=== PATIENT | male | born 1990 | race Hispanic/Latino ===

== ENCOUNTER 2018-12-11 14:17 | Inpatient (IN) | payer SELFPAY ==
[~2018-12-11 14:17] MED LIST: Heparin 1,000 UNITS/ML VIAL ONE; ISOVUE-370 76%-LOCM 1 ML ONE
[2018-12-11 15:08] LABS: #Lymphocytes 1.4 thou/uL (1.20-3.40); #Monocytes 0.9 thou/uL (0.11-0.59); #Neutrophils 11.1 thou/uL (1.40-6.50); %Basophils 0.3 % (0.0-1.0); %Eosinophils 0.2 % (0.0-10.0); %Lymphocytes 10.1 % (21.0-51.0); %Neutrophils 82.4 % (42.0-75.0); Hemoglobin 13.2 g/dL (14.0-18.0); Mean Corpuscular HGB CONC 32.4 g/dL (32.0-36.0); Mean Corpuscular Volume 86.3 fL (78.0-98.0); Mean Platelet Volume 6.7 fL (7.4-10.4); Platelet Count 277 thou/uL (130-400); RBC Distribution Width 12.2 % (11.5-14.5); White Blood Cell (WBC) Count 13.5 thou/uL (4.8-10.8)
--- NOTE | 2018-12-11 15:13 | RAD ---
Portable chest: HISTORY: Fever COMPARISON: none FINDINGS: Lung varela are clear. Heart and mediastinum appear unremarkable. Vascularity is normal. Visualized osseous structures unremarkable. IMPRESSION: No acute finding
[2018-12-11 15:28] LABS: ALT (SGPT) 18 U/L (8-55); AST (SGOT) 21 U/L (5-34); Albumin 3.1 g/dL (3.5-5.0); Alkaline Phosphatase 125 U/L (40-150); Anion Gap 12 mmol/L (10-20); BUN (Urea Nitrogen) 19 mg/dL (8.9-20.6); Bilirubin, Total 0.4 mg/dL (0.2-1.2); Calc. Creatinine Clearance 0 mL/min (70-130); Calcium 8.6 mg/dL (7.8-10.44); Carbon Dioxide 26 mmol/L (22-29); Chloride 104 mmol/L (98-107); Estimated GFR-MDRD Greater than 90; Globulin 3.3 g/dL (2.4-3.5); Glucose 109 mg/dL (70-105); Potassium 3.6 mmol/L (3.5-5.1); Protein, Total 6.4 g/dL (6.0-8.3); Sodium 138 mmol/L (136-145)
[2018-12-11] MEDS ORDERED: Acetaminophen 500 MG TAB ONE (15:39)
[2018-12-11] MEDS ORDERED: cefTRIAXone\\ROCEPHIN 2 GM VIAL ONE (15:39)
[2018-12-11 15:48] LABS: Color Of CSF Supernatant COLORLESS (Colorless); Tube # 2; Unspun CSF Color COLORLESS (Colorless)
[2018-12-11 16:02] LABS: CSF Source CSF; Clarity Clear (Clear); RBC Count - Manual 1420 /cumm (None Seen); RBC Count - Manual 28 /cumm (None Seen); Tube # 1; Tube # 4; WBC/NonHematics Count - Manual 0 /cumm (0-5); WBC/NonHematics Count - Manual 3 /cumm (0-5)
[2018-12-11 16:04] LABS: CSF, Glucose 61 mg/dl (40-70); CSF, Protein 25 mg/dL (15-40)
[2018-12-11] MEDS ORDERED: Vancomycin HCl 1.5 GM in Sodium Chloride 0.9% 250 ML 300 ML IVPB SCH (16:30)
[2018-12-11] MEDS ORDERED: Ibuprofen 200 MG TAB PO PRN (16:42)
[2018-12-11] MEDS ORDERED: VANCOMYCIN/RENALLY ADJUST ABX IVPB PRN (16:42)
[2018-12-11] MEDS ORDERED: Ondansetron ODT 4 MG TAB PO PRN (16:44)
[2018-12-11] MEDS ORDERED: Acetaminophen 325 MG TAB PO PRN (16:44)
[2018-12-11] MEDS ORDERED: Senokot S 8.6-50 MG TAB PO PRN (16:44)
[2018-12-11] MEDS ORDERED: Ondansetron PF 4 MG/2 ML Vial IVP PRN (16:44)
[2018-12-11] MEDS ORDERED: HYDROcodone/Acetaminophen 5/325 mg Tablet PO PRN (16:44)
[2018-12-11] MEDS ORDERED: Calcium Carbonate 500 MG ChewTAB PO PRN (16:44)
[2018-12-11] MEDS ORDERED: Vancomycin HCl 1 GM in Premix Bag 1 BAG IVPB SCH (16:45)
[2018-12-11 17:04] LABS: Bilirubin Negative (Negative); Blood, Urine Trace (Negative); Clarity CLEAR (Clear); Glucose, Urine (Dipstick) Negative (Negative); Leukocyte Negative (Negative); Nitrite Negative (Negative); Protein, Urine (Dipstick) Negative (Neg-Trace); Specific Gravity, Urine 1.016 (1.002-1.036); Urobilinogen 0.2 mg/dL (0.2-1.0)
[2018-12-11 17:07] LABS: Bacteria/HPF None Seen HPF (None Seen); Hyaline Casts/LPF 4-6 HYALINE CAST LPF (0-3 Hyaline); Pathc Cast-AUWi Flag 1.35 (0-2.49); RBC/HPF None Seen HPF (0-3); Squamous Epithelial 0-3 HPF (0-3); WBC/HPF 0-3 HPF (0-3)
--- NOTE | 2018-12-11 18:26 | CT ---
CT NECK WITH CONTRAST: Technique: Multiple axial tomograms were obtained through the neck with IV enhancement. Indications: Sepsis. Sore throat. FINDINGS: Parotid glands are somewhat dense but are symmetric. Submandibular glands appear symmetric. Thyroid u nremarkable. Nasopharynx unremarkable. Oropharynx and Waldeyer's ring appear symmetric. The palatine tonsils are mildly prominent but are sy mmetric. No evidence of peritonsillar abscess identified. There are two small calcified tonsilliths i n the right palatine tonsil. The hypopharynx and larynx unremarkable. Parapharyngeal space and retropharyngeal space unremarkable. Review of the lymph nodes show nonspecific cervical lymph nodes without significant adenopathy. Lung apices are clear. Paranasal sinuses and mastoids are clear. IMPRESSION: 1. [place] tonsils are mildly prominent but are symmetric. There is no evidence of peritonsillar abs cess. POS: AGW
[2018-12-11 18:55] LABS: Lactic Acid 0.6 mmol/L (0.5-2.2)
[2018-12-11] MEDS ORDERED: MEROPENEM 1 GM/50 ML 1 GM in Premix Bag 1 BAG IVPB SCH (20:00)
--- NOTE | 2018-12-11 20:16 | HP ---
CHIEF COMPLAINT: Fever and sore throat of 2 weeks duration. PRIMARY CARE PHYSICIAN: None. HISTORY OF PRESENT ILLNESS: The patient is a 28-year-old male, [place]-speaking only, presented to the emergency room with above complaints. Over the last 2 weeks, the patient has intermittent fever and chills along with sore throat. He also had night sweats along with nausea. No vomiting reported. He had difficulty swallowing due to significant sore throat. His symptoms progressively got worse. He was started on prednisone along with Keflex without much improvement. Last week, he was started on azithromycin, which he completed. His symptoms, however, continued to worsen. He presented to the emergency room. He denies any sick contacts. He continues to have generalized body aches and fatigue. In the emergency room, his rectal temperature was 105.2 with respirations of 20, pulse rate of 123, blood pressure of 163/81 with O2 saturation of 99% on room air. He received vancomycin, ceftriaxone, IV fluids, and Tylenol in the emergency room. He also had some generalized headache without any photophobia, phonophobia, or focal deficit. PAST MEDICAL HISTORY: Heart murmur diagnosed at the age of 5 years. PAST SURGICAL HISTORY: Reviewed with the patient and none. ALLERGIES: NO KNOWN DRUG ALLERGIES. CURRENT HOME MEDICATIONS: Reviewed with the patient and none. He recently completed azithromycin. He was also on penicillin and Keflex prior to this. SOCIAL HISTORY: The patient denies current use of alcohol, tobacco, or drug use. He moved to [facility] in March 2018 from [place]. He works as a harpreet. He does not have any pets. FAMILY HISTORY: Negative for diabetes or heart disease. REVIEW OF SYSTEMS: All other review of systems was reviewed and was found. PHYSICAL EXAMINATION: VITAL SIGNS: As discussed above. GENERAL: A 28-year-old male, in no apparent distress, feels generally weak. HEENT: Head, atraumatic and normocephalic. Sclerae anicteric. Moist mucous membranes. There is erythema over the pharynx without tonsillar exudate. NECK: Supple. No JVD. No carotid bruit. LUNGS: Clear to auscultation bilaterally. No wheezing, rales, or rhonchi. HEART: S1 and S2 present. Tachycardic. There is 4 to 5/5 systolic murmur heard loudest in the left lateral sternal border. ABDOMEN: Soft and nontender. Bowel sounds present. No rebound or guarding. No costovertebral angle tenderness. MUSCULOSKELETAL: No joint swelling tenderness. NEUROLOGIC: Grossly nonfocal. Moves all 4 extremities. PSYCHIATRY: Alert, awake, and oriented x3. SKIN: Warm and dry. LYMPH NODES: No palpable lymph nodes in the neck. PERIPHERAL VASCULAR: Radial pulses palpable bilaterally. MUSCULOSKELETAL: No joint swelling tenderness. LABORATORY FINDINGS: CBC showed WBC 13.5, hemoglobin 13.2, hematocrit 40.6, platelet 277. Chemistry showed sodium 138, potassium 3.6, chloride 104, bicarb 26, BUN 19, creatinine 0.85, glucose of 109. Lactic acid 2.2. Troponin was negative. Albumin 3.1. Spinal fluid showed glucose of 61, total protein 25 with 3 wbc's. Urinalysis was negative for wbc bacteria. Influenza testing negative. Strep screen negative. Gram stain from spinal fluid was negative for bacteria or wbc. Chest x-ray by my review was negative for infiltrate. EKG by my review showed sinus tachycardia. CT scan of the neck soft tissue showed mild prominence of palatine tonsils without any evidence of peritonsillar abscess. IMPRESSION: 1. Sepsis with acute organ dysfunction of unclear etiology. 2. History of heart murmur since the age of 5. 3. Nausea with sore throat and night sweats. 4. Anemia, probably chronic. 5. Sinus tachycardia secondary to sepsis. PLAN: Please note that the patient has failed outpatient antibiotic treatment. We will start him on vancomycin and Zosyn. Infectious Disease will be consulted. We will check respiratory viral panel. IV fluids. We will recheck labs in a.m. Droplet isolation for now. We will get an echocardiogram due to possible concern of infective endocarditis. Plan of care was discussed with the patient and [id number] in detail. Please note that the patient is [place]ayan-speaking only. The [id number] assisted in translation. Job ID: [id number]
[2018-12-11] MEDS: Sodium Chloride 0.9% 1,000 ML IV SCH (20:17)
[2018-12-11] MEDS: Piperacillin/Tazobactam 3.375 GM in Sodium Chloride 0.9% 100 ML IVPB SCH (20:18)
[2018-12-12] MEDS: Vancomycin HCl 750 MG in Sodium Chloride 0.9% 250 ML 250 ML IVPB SCH ×2 (01:02→09:48)
[2018-12-12] MEDS: Piperacillin/Tazobactam 3.375 GM in Sodium Chloride 0.9% 100 ML IVPB SCH ×3 (04:28→18:34)
[2018-12-12] MEDS: Sodium Chloride 0.9% 1,000 ML IV SCH ×5 (04:33→23:40)
[2018-12-12 05:58] LABS: ALT (SGPT) 14 U/L (8-55); AST (SGOT) 14 U/L (5-34); Albumin 2.6 g/dL (3.5-5.0); Alkaline Phosphatase 90 U/L (40-150); Anion Gap 9 mmol/L (10-20); BUN (Urea Nitrogen) 10 mg/dL (8.9-20.6); Bilirubin, Total 0.3 mg/dL (0.2-1.2); CRP (Inflammatory) 9.63 mg/dL (= or < 0.5); Calc. Creatinine Clearance 106 mL/min (70-130); Calcium 8.2 mg/dL (7.8-10.44); Carbon Dioxide 26 mmol/L (22-29); Chloride 107 mmol/L (98-107); Estimated GFR-MDRD Greater than 90; Globulin 2.8 g/dL (2.4-3.5); Glucose 101 mg/dL (70-105); Magnesium 1.7 mg/dL (1.6-2.6); Potassium 3.7 mmol/L (3.5-5.1); Protein, Total 5.4 g/dL (6.0-8.3); Sodium 138 mmol/L (136-145)
[2018-12-12 06:13] LABS: Band 27 % (5-11); Hemoglobin 12.2 g/dL (14.0-18.0); Lymphocytes 8 % (21-51); MDiff Complete? YES; Mean Corpuscular HGB CONC 32.7 g/dL (32.0-36.0); Mean Corpuscular Hemoglobin 28.3 pg (27.0-31.0); Mean Corpuscular Volume 86.4 fL (78.0-98.0); Mean Platelet Volume 6.7 fL (7.4-10.4); Monocytes 9 % (0-10); Neutrophil 56 % (42-75); Platelet Count 260 thou/uL (130-400); RBC Distribution Width 12.2 % (11.5-14.5); White Blood Cell (WBC) Count 11.9 thou/uL (4.8-10.8)
[2018-12-12] MEDS ORDERED: Doxycycline 100 MG CAP PO SCH (09:00)
[2018-12-12] MEDS: CEFAZOLIN 2 GM in Premix Bag 1 BAG IVPB SCH ×2 (17:33→23:36)
--- NOTE | 2018-12-12 18:34 | PDOC.PN ---
- Subjective Encounter Start Date: 12/12/18 Encounter Start Time: 11:30 Patient seen and examined for Sepsis. Feels slightly better. No new complaints. No overnight events - Objective Resuscitation Status - Order Detail: 12/11/18 16:43 Resuscitation Status Routine Resuscitation Status: FULL: Full Resuscitation MAR Reviewed: Yes Vital Signs & Weight: Vital Signs (12 hours) Temp Pulse Resp BP Pulse Ox 12/12/18 16:00 100.3 F H 77 16 128/63 99 12/12/18 12:00 99.2 F 85 16 99 12/12/18 08:15 97.7 F 76 16 124/63 Weight Admit Weight 111 lb 14.4 oz Weight 111 lb 14.4 oz I&O: 12/11/18 12/12/18 12/13/18 06:59 06:59 06:59 Intake Total 815 2520 Output Total 325 Balance 490 2520 Result Diagrams: 12/12/18 04:59 12/12/18 04:59 Phys Exam - Physical Examination Constitutional: NAD Respiratory: no wheezing, no rales, no rhonchi, clear to auscultation bilateral Cardiovascular: RRR, no rub murmur +, no heaves/pulsations Gastrointestinal: soft, non-tender, no distention, positive bowel sounds Musculoskeletal: no edema Neurological: non-focal, normal sensation, moves all 4 limbs Psychiatric: normal affect, A&O x 3 Dx/Plan - Plan DVT proph w/SCDs IMPRESSION: 1. Sepsis with acute organ dysfunction of Infective endocarditis/Staph bacteremia. 2. History of heart murmur since the age of 5. 3. Nausea with sore throat and night sweats. 4. Anemia, probably chronic. 5. Sinus tachycardia secondary to sepsis. PLAN: DC Zosyn Cont Vancomycin Await Echo Await ID input Cont other meds as below Review of Systems - Review of Systems Respiratory: negative: Cough, Dry, Shortness of Breath, Hemoptysis, SOB with Excertion, Pleuritic Pain, Sputum, Wheezing Cardiovascular: negative: chest pain, palpitations, orthopnea, paroxysmal nocturnal dyspnea, edema, light headedness, other Gastrointestinal: negative: Nausea, Vomiting, Abdominal Pain, Diarrhea, Constipation, Melena, Hematochezia, Other - Medications/Allergies Allergies/Adverse Reactions: Allergies Allergy/AdvReac Type Severity Reaction Status Date / Time No Known Allergies Allergy Verified 12/11/18 19:09 Medications: Current Medications Acetaminophen (Tylenol) 650 mg PO Q4H PRN PRN Reason: Headache/Fever/Mild Pain (1-3) Last Admin: 12/12/18 03:22 Dose: 650 mg Hydrocodone Bitart/Acetaminophen ([place] 5/325) 1 tab PO Q6H PRN PRN Reason: Moderate Pain (4-6) Calcium Carbonate (Tums) 1,000 mg PO Q4H PRN PRN Reason: Heartburn or Indigestion Sodium Chloride (Normal Saline 0.9%) 1,000 mls @ 150 mls/hr IV .[id number] [facility] Last Admin: 12/12/18 17:15 Dose: 1,000 mls Cefazolin Sodium/Dextrose 2 gm (/ Device) 50 mls @ 100 mls/hr IVPB 0000,0800, 1600 [facility] Last Admin: 12/12/18 17:33 Dose: 50 mls Ondansetron HCl (Zofran Odt) 4 mg PO Q6H PRN PRN Reason: Nausea/Vomiting Ondansetron HCl (Zofran) 4 mg IVP Q6H PRN PRN Reason: Nausea/Vomiting Senna/Docusate Sodium (Senokot S) 2 tab PO BID PRN PRN Reason: Constipation
--- NOTE | 2018-12-12 22:07 | CON ---
DATE OF CONSULTATION: 12/12/2018 REASON FOR CONSULTATION: Fever. HISTORY OF PRESENT ILLNESS: A 28-year-old who has some congenital heart disease, he is originally from [place] and he has been living in this area for the past few months, working in construction intermittently. This is the first admission to this hospital when he presented with a 2-3 week history of fever. He went to some clinic in the area and was given prednisone and 2 different antimicrobials without improvement and he was eventually admitted. PHYSICAL EXAMINATION: VIAL SIGNS: Initial temperature 105.2, respirations 20, heart rate 123, BP 160/81, O2 saturation 99. GENERAL: Did not appear in distress. NECK: No jugular vein distention. LUNGS: Clear to auscultation and percussion. There was a loud systolic murmur in the precordial area, more prominent at the base to the left of the sternal border. ABDOMEN: Soft, nontender with no other abnormalities noted. SKIN: Normal. NEUROLOGIC: Nonfocal. LABORATORY DATA: White cell count 13.5, hemoglobin 13, hematocrit 40. Sodium 138, creatinine 0.85, lactic acid 2.2. He had a CSF evaluation with only 3 WBCs. Urinalysis negative for WBC or bacteria. Influenza test was negative. Chest x-ray with no infiltrates noted. There is a CT of the neck, which showed prominence of tonsils, but no abscess. Now, we have positive blood cultures with Staphylococcus aureus, 2/2 sets of blood cultures. Currently Mr. Mendoza is still feeling not very well, but a little bit better. REVIEW OF SYSTEMS: No headaches at this moment. No respiratory symptoms. Remainder of ten-point review of systems is negative. PAST MEDICAL HISTORY: Otherwise negative except for a heart murmur at the age of 5. ALLERGIES: NONE. MEDICATIONS: Currently receiving; 1. Tylenol. 2. [place]. 3. Tums. 4. Zofran. 5. Zosyn. 6. Vancomycin. FAMILY HISTORY: Noncontributory. ALLERGIES: NONE. SOCIAL HISTORY: He is originally from [place], had been in the [place] for the past few months, used to work as a harpreet. PHYSICAL EXAMINATION: VITAL SIGNS: T-max 99.6, blood pressure 120/60, pulse 76, respirations 16, and O2 saturation 99. SKIN: Did not show any abnormalities. Peripheral IV access. No Bustamante catheter. No lymphadenopathy. HEENT: Ocular movements conjugate. Sclerae white. Pupils are equal. Conjunctivae normal. Nasal passages patent. Ear exam normal. Oral cavity normal. NECK: Supple. No jugular vein distention. LUNGS: With symmetric clear breath sounds. The patient has a very loud at least 3/6 murmur at the precordial area, more intense to the left of the sternal border, ejection-type. No S3. ABDOMEN: Soft, not distended or tender. No evidence of splenomegaly. GENITOURINARY: No genital abnormalities. MUSCULOSKELETAL: No joint inflammatory activity noted. Pulses 2+ in dorsalis pedis. No edema. Plantar response are flexor. No clonus. Cognitive function appears to be intact. LABORATORY DATA: White cell count is 13.5 and now 11.9, hemoglobin 12.2, platelets 260, 56% neutrophils and 27% bands. Sodium 138, creatinine 0.73. Liver profile normal. Albumin 2.6, trace blood with 4-6 casts and urine wbc is 0-3. ASSESSMENT: Congenital heart disease of unknown type, possibly bicuspid aorta with aortic stenosis or some septal defect now with bacteremia. DISCUSSION: Most of the differential diagnosis includes aortic valve endocarditis or pulmonic valve endocarditis due to methicillin sensitive or methicillin-resistant Staphylococcus aureus. The organism identified by [employer] appears to be methicillin-susceptible. We will switch him to cefazolin 2 g q.8 and order a 2D echocardiogram and then plan PICC line placement and treat for 6 weeks with IV cefazolin. Job ID: [id number]
[2018-12-13 06:36] LABS: Band 10 % (5-11); Eosinophils 2 % (0-10); Hemoglobin 12.7 g/dL (14.0-18.0); Lymphocytes 26 % (21-51); MDiff Complete? YES; Mean Corpuscular HGB CONC 32.6 g/dL (32.0-36.0); Mean Corpuscular Hemoglobin 28.1 pg (27.0-31.0); Mean Corpuscular Volume 86.4 fL (78.0-98.0); Mean Platelet Volume 6.3 fL (7.4-10.4); Monocytes 9 % (0-10); Neutrophil 52 % (42-75); Platelet Count 294 thou/uL (130-400); RBC Distribution Width 12.1 % (11.5-14.5); Reactive Lymphocytes 1 % (0-10); Red Blood Cell (RBC) Count 4.53 mill/uL (4.70-6.10); White Blood Cell (WBC) Count 10.5 thou/uL (4.8-10.8)
[2018-12-13 06:44] LABS: ALT (SGPT) 16 U/L (8-55); AST (SGOT) 14 U/L (5-34); Alkaline Phosphatase 86 U/L (40-150); Anion Gap 11 mmol/L (10-20); BUN (Urea Nitrogen) 7 mg/dL (8.9-20.6); Bilirubin, Total 0.3 mg/dL (0.2-1.2); Calc. Creatinine Clearance 102 mL/min (70-130); Carbon Dioxide 28 mmol/L (22-29); Chloride 104 mmol/L (98-107); Estimated GFR-MDRD Greater than 90; Globulin 3.3 g/dL (2.4-3.5); Glucose 94 mg/dL (70-105); Potassium 3.9 mmol/L (3.5-5.1); Protein, Total 6.3 g/dL (6.0-8.3); Sodium 139 mmol/L (136-145)
[2018-12-13] MEDS: CEFAZOLIN 2 GM in Premix Bag 1 BAG IVPB SCH ×2 (09:00→16:42)
--- NOTE | 2018-12-13 11:42 | SPC ---
SPC CVP LINE PICC INITIAL >5: 12/13/2018 12:00 AM PROCEDURE: Peripherally placed 49 cm single lumen PICC line. PICC Line Placement: The left arm was prepped and draped in sterile fashion. One percent lidocaine was used for local anesthetic. Under fluoroscopic and ultrasound guidance, the basilic vein was patent and accessed with a micropunc ture needle. A guide wire was then advanced into the basilic vein. A vascular sheath was then advanced over a guide wire, and a single lumen PICC line was trimmed. The PICC line was then advanc ed into the central venous system. A final placement film demonstrates the tip of the catheter terminated in the caval-atrial junction. After confirmation of the catheter position, the catheter was sutured in place at the skin entry site . There was no immediate complication. Total fluoroscopic time 0.4 minutes. Total exposure 1552 mgray/sq cm IMPRESSION: Peripheral placement of a single lumen power PICC line into the left basilic vein using fluoroscopic and ultrasound guidance.
[2018-12-13] MEDS: Sodium Chloride 0.9% 1,000 ML IV SCH (16:46)
--- NOTE | 2018-12-13 17:31 | PRG ---
DATE OF SERVICE: 12/13/2018 SUBJECTIVE: Feeling about the same. Fever has subsided somewhat. No headaches. No dyspnea. No back pain. No abdominal pain or diarrhea. OBJECTIVE: VITAL SIGNS: T-max 98.9, blood pressure 119/71, pulse 66, respirations 16, and O2 saturation 98%. SKIN: Not remarkable. No lymphadenopathy. HEENT: Ocular movements conjugate. Oral cavity normal. NECK: Supple. LUNGS: Symmetric, clear breath sounds. HEART: Loud 3/6 murmur in the precordial area. EXTREMITIES: Moves all extremities equally. LABORATORY DATA: White cell count 10.5, hemoglobin 12.7, and platelets 294. Creatinine 0.76. Liver profile normal. Albumin 3.0. Again, the microbiology with methicillin-sensitive Staph aureus. Echocardiogram report with a possible mass or redundant chordae in the tricuspid valve. ASSESSMENT AND DISCUSSION: History of some form of congenital cardiac abnormality, who now presents with Staphylococcus aureus bacteremia. He had a loud precordial murmur, ejection type. The most likely scenario is endocarditis, and SONIYA has been requested to confirm the imaging findings after that and PICC line placement and protracted IV cefazolin. Job ID: [id number]
--- NOTE | 2018-12-13 20:49 | PDOC.PN ---
- Subjective Encounter Start Date: 12/13/18 Encounter Start Time: 09:45 Patient seen and examined for endocarditis. No CP/nausea. No new complaints. No overnight events - Objective Resuscitation Status - Order Detail: 12/11/18 16:43 Resuscitation Status Routine Resuscitation Status: FULL: Full Resuscitation MAR Reviewed: Yes Vital Signs & Weight: Vital Signs (12 hours) Temp Pulse Resp BP BP Pulse Ox 12/13/18 15:30 98.6 F 66 16 119/71 98 12/13/18 12:00 98.9 F 70 16 118/63 99 Weight Admit Weight 111 lb 14.4 oz Weight 118 lb 7 oz I&O: 12/12/18 12/13/18 12/14/18 06:59 06:59 06:59 Intake Total 815 2520 225 Output Total 325 Balance 490 2520 225 Result Diagrams: 12/13/18 05:56 12/13/18 05:56 Radiology Reviewed by me: No (Echo - reviewed) EKG Reviewed by me: Yes (Tele SR) Phys Exam - Physical Examination Constitutional: NAD Respiratory: no wheezing, no rhonchi Cardiovascular: RRR, no rub Gastrointestinal: soft, positive bowel sounds Musculoskeletal: no edema Neurological: non-focal, moves all 4 limbs Dx/Plan - Plan DVT proph w/SCDs IMPRESSION: 1. Sepsis with acute organ dysfunction due to Infective endocarditis/Staph bacteremia. 2. History of heart murmur since the age of 5. 3. Nausea with sore throat and night sweats. 4. Anemia, probably chronic. 5. Sinus tachycardia secondary to sepsis. 6. Mild PEM PLAN: Echo reviewed Cont Ancef SONIYA per ID recommendation - Case d/w Dr Aldana Cont other meds as below Review of Systems - Review of Systems Respiratory: negative: Cough, Dry, Shortness of Breath, Hemoptysis, SOB with Excertion, Pleuritic Pain, Sputum, Wheezing Cardiovascular: negative: chest pain, palpitations, orthopnea, paroxysmal nocturnal dyspnea, edema, light headedness, other Gastrointestinal: negative: Nausea, Vomiting, Abdominal Pain, Diarrhea, Constipation, Melena, Hematochezia, Other - Medications/Allergies Allergies/Adverse Reactions: Allergies Allergy/AdvReac Type Severity Reaction Status Date / Time No Known Allergies Allergy Verified 12/11/18 19:09 Medications: Current Medications Acetaminophen (Tylenol) 650 mg PO Q4H PRN PRN Reason: Headache/Fever/Mild Pain (1-3) Last Admin: 12/12/18 03:22 Dose: 650 mg Hydrocodone Bitart/Acetaminophen ([place] 5/325) 1 tab PO Q6H PRN PRN Reason: Moderate Pain (4-6) Calcium Carbonate (Tums) 1,000 mg PO Q4H PRN PRN Reason: Heartburn or Indigestion Cefazolin Sodium/Dextrose 2 gm (/ Device) 50 mls @ 100 mls/hr IVPB 0000,0800, 1600 [facility] Last Admin: 12/13/18 16:42 Dose: 50 mls Sodium Chloride (Normal Saline 0.9%) 1,000 mls @ 75 mls/hr IV .[id number] [facility] Last Admin: 12/13/18 16:46 Dose: 1,000 mls Ondansetron HCl (Zofran Odt) 4 mg PO Q6H PRN PRN Reason: Nausea/Vomiting Ondansetron HCl (Zofran) 4 mg IVP Q6H PRN PRN Reason: Nausea/Vomiting Senna/Docusate Sodium (Senokot S) 2 tab PO BID PRN PRN Reason: Constipation
[2018-12-14] MEDS: CEFAZOLIN 2 GM in Premix Bag 1 BAG IVPB SCH ×3 (00:18→16:24)
[2018-12-14] MEDS: Sodium Chloride 0.9% 1,000 ML IV SCH ×2 (00:19→09:55)
[2018-12-14] MEDS ORDERED: PROPOFOL 20 ML ONE (07:52)
[2018-12-14] MEDS ORDERED: PROPOFOL 200 MG/20 ML VIAL ONE (09:46)
[2018-12-14 12:24] VITALS: BMI 18.0
--- NOTE | 2018-12-14 15:42 | ECHO ---
28-year-old gentleman with sepsis. The patient was taken to the PACU. The patient sedated by anesthesiology. A transesophageal probe was placed in the distal esophagus and stomach. Echocardiograms were obtained and the transesophageal pr obe was removed. FINDINGS: 1. Normal left ventricular systolic function. 2. Normal mitral and aortic valves. 3. The tricuspid valve has a 1.3 cm vegetation noted attached to the chordea tendineae. 4. Small ventricular septal defect approximately 25 cm. 5. Atherosclerotic debris in the descending aorta. 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
--- NOTE | 2018-12-14 18:11 | PDOC.PN ---
- Subjective Encounter Start Date: 12/14/18 Encounter Start Time: 13:00 Patient seen and examined for Endocarditis. s/p SONIYA. No new complaints. No overnight events - Objective Resuscitation Status - Order Detail: 12/11/18 16:43 Resuscitation Status Routine Resuscitation Status: FULL: Full Resuscitation MAR Reviewed: Yes Vital Signs & Weight: Vital Signs (12 hours) Temp Pulse Resp BP Pulse Ox 12/14/18 08:36 98.6 F 72 16 120/77 98 Weight Admit Weight 111 lb 14.4 oz Weight 118 lb 7 oz I&O: 12/13/18 12/14/18 12/15/18 06:59 06:59 06:59 Intake Total 2520 225 Balance 2520 225 Result Diagrams: 12/13/18 05:56 12/13/18 05:56 Phys Exam - Physical Examination Constitutional: NAD Respiratory: no wheezing, no rhonchi Cardiovascular: RRR, no rub Gastrointestinal: soft, positive bowel sounds Musculoskeletal: no edema Dx/Plan - Plan DVT proph w/SCDs IMPRESSION: Sepsis with acute organ dysfunction due to Infective endocarditis/Staph bacteremia. VSD. Anemia, probably chronic. Sinus tachycardia secondary to sepsis. Mild PEM PLAN: s/p SONIYA DC IVF Cont Cefazolin Outpt Atbx setup Cont other meds as below Review of Systems - Review of Systems Respiratory: negative: Cough, Dry, Shortness of Breath, Hemoptysis, SOB with Excertion, Pleuritic Pain, Sputum, Wheezing Cardiovascular: negative: chest pain, palpitations, orthopnea, paroxysmal nocturnal dyspnea, edema, light headedness, other - Medications/Allergies Allergies/Adverse Reactions: Allergies Allergy/AdvReac Type Severity Reaction Status Date / Time No Known Allergies Allergy Verified 12/11/18 19:09 Medications: Current Medications Acetaminophen (Tylenol) 650 mg PO Q4H PRN PRN Reason: Headache/Fever/Mild Pain (1-3) Last Admin: 12/12/18 03:22 Dose: 650 mg Hydrocodone Bitart/Acetaminophen ([place] 5/325) 1 tab PO Q6H PRN PRN Reason: Moderate Pain (4-6) Calcium Carbonate (Tums) 1,000 mg PO Q4H PRN PRN Reason: Heartburn or Indigestion Cefazolin Sodium/Dextrose 2 gm (/ Device) 50 mls @ 100 mls/hr IVPB 0000,0800, 1600 [facility] Last Admin: 12/14/18 16:24 Dose: 50 mls Ondansetron HCl (Zofran Odt) 4 mg PO Q6H PRN PRN Reason: Nausea/Vomiting Ondansetron HCl (Zofran) 4 mg IVP Q6H PRN PRN Reason: Nausea/Vomiting Senna/Docusate Sodium (Senokot S) 2 tab PO BID PRN PRN Reason: Constipation
[2018-12-15] MEDS: CEFAZOLIN 2 GM in Premix Bag 1 BAG IVPB SCH ×4 (00:37→23:46)
--- NOTE | 2018-12-15 17:54 | PDOC.PN ---
- Subjective Encounter Start Date: 12/15/18 Encounter Start Time: 14:00 - Objective Resuscitation Status - Order Detail: 12/11/18 16:43 Resuscitation Status Routine Resuscitation Status: FULL: Full Resuscitation MAR Reviewed: Yes Vital Signs & Weight: Vital Signs (12 hours) Temp Pulse Resp BP Pulse Ox 12/15/18 07:44 98.1 F 64 16 107/63 97 Weight Admit Weight 111 lb 14.4 oz Weight 118 lb 7 oz I&O: 12/14/18 12/15/18 12/16/18 06:59 06:59 06:59 Intake Total 225 Balance 225 Result Diagrams: 12/13/18 05:56 12/13/18 05:56 Phys Exam - Physical Examination Constitutional: NAD Respiratory: no wheezing, no rhonchi Cardiovascular: RRR, no rub Gastrointestinal: soft, positive bowel sounds Musculoskeletal: no edema Dx/Plan - Plan DVT proph w/SCDs IMPRESSION: Sepsis with acute organ dysfunction due to Infective endocarditis/Staph bacteremia. s/p SONIYA VSD. Anemia, probably chronic. Sinus tachycardia secondary to sepsis. Mild PEM PLAN: Cont Cefazolin Outpt Atbx setup pending Cont other meds as below Review of Systems - Review of Systems Respiratory: negative: Cough, Dry, Shortness of Breath, Hemoptysis, SOB with Excertion, Pleuritic Pain, Sputum, Wheezing Cardiovascular: negative: chest pain, palpitations, orthopnea, paroxysmal nocturnal dyspnea, edema, light headedness, other - Medications/Allergies Allergies/Adverse Reactions: Allergies Allergy/AdvReac Type Severity Reaction Status Date / Time No Known Allergies Allergy Verified 12/11/18 19:09 Medications: Current Medications Acetaminophen (Tylenol) 650 mg PO Q4H PRN PRN Reason: Headache/Fever/Mild Pain (1-3) Last Admin: 12/12/18 03:22 Dose: 650 mg Hydrocodone Bitart/Acetaminophen ([place] 5/325) 1 tab PO Q6H PRN PRN Reason: Moderate Pain (4-6) Calcium Carbonate (Tums) 1,000 mg PO Q4H PRN PRN Reason: Heartburn or Indigestion Cefazolin Sodium/Dextrose 2 gm (/ Device) 50 mls @ 100 mls/hr IVPB 0000,0800, 1600 [facility] Last Admin: 12/15/18 16:25 Dose: 50 mls Ondansetron HCl (Zofran Odt) 4 mg PO Q6H PRN PRN Reason: Nausea/Vomiting Ondansetron HCl (Zofran) 4 mg IVP Q6H PRN PRN Reason: Nausea/Vomiting Senna/Docusate Sodium (Senokot S) 2 tab PO BID PRN PRN Reason: Constipation
[2018-12-16] MEDS: CEFAZOLIN 2 GM in Premix Bag 1 BAG IVPB SCH (09:27)
[2018-12-16] MEDS: cefTRIAXone\\ROCEPHIN 2 GM in Sodium Chloride 0.9% 100 ML IVPB SCH (11:58)
--- NOTE | 2018-12-16 22:45 | PDOC.PN ---
- Subjective Encounter Start Date: 12/16/18 Encounter Start Time: 10:30 Patient seen and examined for Endocarditis. No fever/CP/N/V/D. No other complaints. No overnight events - Objective Resuscitation Status - Order Detail: 12/11/18 16:43 Resuscitation Status Routine Resuscitation Status: FULL: Full Resuscitation MAR Reviewed: Yes Vital Signs & Weight: Vital Signs (12 hours) Temp Pulse Resp BP BP Pulse Ox 12/16/18 20:00 99 12/16/18 19:44 97.8 F 79 18 112/68 99 12/16/18 16:09 98.6 F 82 20 107/57 L 97 12/16/18 11:38 98.5 F 74 16 98/61 96 Weight Admit Weight 111 lb 14.4 oz Weight 118 lb 7 oz I&O: 12/15/18 12/16/18 12/17/18 06:59 06:59 06:59 Intake Total 1350 Balance 1350 Result Diagrams: 12/13/18 05:56 12/13/18 05:56 Phys Exam - Physical Examination Constitutional: NAD Respiratory: no wheezing, no rhonchi Cardiovascular: RRR, no rub Gastrointestinal: soft, non-tender, positive bowel sounds Musculoskeletal: no edema Neurological: moves all 4 limbs Dx/Plan - Plan DVT proph w/SCDs IMPRESSION: Sepsis with acute organ dysfunction due to Infective endocarditis/Staph bacteremia. s/p SONIYA VSD. chronic Anemia Sinus tachycardia secondary to sepsis. Mild PEM PLAN: Change Cefazolin to Ceftriaxone per ID recs. Outpt Atbx setup pending Cont other meds as below Stable for dc Review of Systems - Medications/Allergies Allergies/Adverse Reactions: Allergies Allergy/AdvReac Type Severity Reaction Status Date / Time No Known Allergies Allergy Verified 12/11/18 19:09 Medications: Current Medications Acetaminophen (Tylenol) 650 mg PO Q4H PRN PRN Reason: Headache/Fever/Mild Pain (1-3) Last Admin: 12/12/18 03:22 Dose: 650 mg Calcium Carbonate (Tums) 1,000 mg PO Q4H PRN PRN Reason: Heartburn or Indigestion Ceftriaxone Sodium 2 gm/ (Sodium Chloride) 100 mls @ 200 mls/hr IVPB Q24HR [facility] Last Admin: 12/16/18 11:58 Dose: 100 mls Ondansetron HCl (Zofran Odt) 4 mg PO Q6H PRN PRN Reason: Nausea/Vomiting Ondansetron HCl (Zofran) 4 mg IVP Q6H PRN PRN Reason: Nausea/Vomiting Senna/Docusate Sodium (Senokot S) 2 tab PO BID PRN PRN Reason: Constipation Sodium Chloride (Flush - Normal Saline) 10 ml IVF Q12HR JOSEFINA Last Admin: 12/16/18 20:32 Dose: 10 ml Sodium Chloride (Flush - Normal Saline) 10 ml IVF PRN PRN PRN Reason: Saline Flush
[2018-12-17] MEDS: cefTRIAXone\\ROCEPHIN 2 GM in Sodium Chloride 0.9% 100 ML IVPB SCH (10:28)
--- NOTE | 2018-12-17 22:23 | PDOC.PN ---
- Subjective Encounter Start Date: 12/17/18 Encounter Start Time: 18:45 Patient seen and examined for Endocarditis. No fever. No new complaints. No overnight events - Objective Resuscitation Status - Order Detail: 12/11/18 16:43 Resuscitation Status Routine Resuscitation Status: FULL: Full Resuscitation MAR Reviewed: Yes Vital Signs & Weight: Vital Signs (12 hours) Temp Pulse Resp BP BP BP Pulse Ox 12/17/18 20:00 98 12/17/18 19:25 98.8 F 90 18 103/60 98 12/17/18 15:51 98.5 F 77 20 107/66 99 12/17/18 11:40 98.2 F 71 20 123/66 99 Weight Admit Weight 111 lb 14.4 oz Weight 118 lb 7 oz I&O: 12/16/18 12/17/18 12/18/18 06:59 06:59 06:59 Intake Total 1350 1100 Balance 1350 1100 Result Diagrams: 12/13/18 05:56 12/13/18 05:56 Phys Exam - Physical Examination Constitutional: NAD Respiratory: no wheezing, no rhonchi Cardiovascular: RRR, no rub Gastrointestinal: soft, non-tender, positive bowel sounds Musculoskeletal: no edema Neurological: moves all 4 limbs Dx/Plan - Plan DVT proph w/SCDs IMPRESSION: Sepsis with acute organ dysfunction due to Infective endocarditis/MSSA Staph bacteremia. s/p SONIYA VSD Chronic Anemia Sinus tachycardia secondary to sepsis. Mild PEM PLAN: Cont Ceftriaxone per ID recs. DC home after outpt Atbx setup Cont current meds as below Stable for discharge Review of Systems - Medications/Allergies Allergies/Adverse Reactions: Allergies Allergy/AdvReac Type Severity Reaction Status Date / Time No Known Allergies Allergy Verified 12/11/18 19:09 Medications: Current Medications Acetaminophen (Tylenol) 650 mg PO Q4H PRN PRN Reason: Headache/Fever/Mild Pain (1-3) Last Admin: 12/12/18 03:22 Dose: 650 mg Calcium Carbonate (Tums) 1,000 mg PO Q4H PRN PRN Reason: Heartburn or Indigestion Ceftriaxone Sodium 2 gm/ (Sodium Chloride) 100 mls @ 200 mls/hr IVPB Q24HR JOSEFINA Last Admin: 12/17/18 10:28 Dose: 100 mls Ondansetron HCl (Zofran Odt) 4 mg PO Q6H PRN PRN Reason: Nausea/Vomiting Ondansetron HCl (Zofran) 4 mg IVP Q6H PRN PRN Reason: Nausea/Vomiting Senna/Docusate Sodium (Senokot S) 2 tab PO BID PRN PRN Reason: Constipation Sodium Chloride (Flush - Normal Saline) 10 ml IVF Q12HR [facility] Last Admin: 12/17/18 20:35 Dose: 10 ml Sodium Chloride (Flush - Normal Saline) 10 ml IVF PRN PRN PRN Reason: Saline Flush
[2018-12-18] MEDS: cefTRIAXone\\ROCEPHIN 2 GM in Sodium Chloride 0.9% 100 ML IVPB SCH (10:10)
--- NOTE | 2018-12-18 22:49 | PDOC.PN ---
- Subjective Encounter Start Date: 12/18/18 Encounter Start Time: 13:15 Patient seen and examined for Endocarditis. No new complaints. No overnight events - Objective Resuscitation Status - Order Detail: 12/11/18 16:43 Resuscitation Status Routine Resuscitation Status: FULL: Full Resuscitation MAR Reviewed: Yes Vital Signs & Weight: Vital Signs (12 hours) Temp Pulse Resp BP Pulse Ox 12/18/18 20:00 95 12/18/18 19:51 98 F 77 18 99/56 L 95 12/18/18 15:59 98.8 F 76 20 91/51 L 99 12/18/18 12:09 97.9 F 74 20 107/67 99 Weight Admit Weight 111 lb 14.4 oz Weight 118 lb 7 oz I&O: 12/17/18 12/18/18 12/19/18 06:59 06:59 06:59 Intake Total 1350 1100 1300 Balance 1350 1100 1300 Result Diagrams: 12/13/18 05:56 12/13/18 05:56 Phys Exam - Physical Examination Constitutional: NAD Respiratory: no wheezing, no rhonchi Cardiovascular: RRR, no rub Gastrointestinal: soft, non-tender, positive bowel sounds Musculoskeletal: no edema Dx/Plan - Plan DVT proph w/SCDs IMPRESSION: Sepsis with acute organ dysfunction due to Infective endocarditis/MSSA Staph bacteremia. s/p SONIYA VSD Chronic Anemia Sinus tachycardia secondary to sepsis. Mild PEM PLAN: Cont Ceftriaxone Await outpt Atbx setup Cont current meds as below Stable for discharge Review of Systems - Medications/Allergies Allergies/Adverse Reactions: Allergies Allergy/AdvReac Type Severity Reaction Status Date / Time No Known Allergies Allergy Verified 12/11/18 19:09 Medications: Current Medications Acetaminophen (Tylenol) 650 mg PO Q4H PRN PRN Reason: Headache/Fever/Mild Pain (1-3) Last Admin: 12/12/18 03:22 Dose: 650 mg Calcium Carbonate (Tums) 1,000 mg PO Q4H PRN PRN Reason: Heartburn or Indigestion Ceftriaxone Sodium 2 gm/ (Sodium Chloride) 100 mls @ 200 mls/hr IVPB Q24HR [facility] Last Admin: 12/18/18 10:10 Dose: 100 mls Ondansetron HCl (Zofran Odt) 4 mg PO Q6H PRN PRN Reason: Nausea/Vomiting Ondansetron HCl (Zofran) 4 mg IVP Q6H PRN PRN Reason: Nausea/Vomiting Senna/Docusate Sodium (Senokot S) 2 tab PO BID PRN PRN Reason: Constipation Sodium Chloride (Flush - Normal Saline) 10 ml IVF Q12HR [facility] Last Admin: 12/18/18 20:33 Dose: 10 ml Sodium Chloride (Flush - Normal Saline) 10 ml IVF PRN PRN PRN Reason: Saline Flush
[2018-12-19] MEDS: cefTRIAXone\\ROCEPHIN 2 GM in Sodium Chloride 0.9% 100 ML IVPB SCH (07:48)
[2018-12-19 12:01] VITALS: BP 116/73; TEMP 98.1
--- NOTE | 2018-12-19 13:37 | DIS ---
DATE OF ADMISSION: 12/11/2018 DATE OF DISCHARGE: 12/19/2018 DISCHARGE DISPOSITION: Home. FOLLOWUP: 1. Follow up with primary care physician at [facility] clinic in 1 week. 2. Follow up with Infectious Disease, Dr. Cortez, in 2 weeks. 3. PICC line care was emphasized. DISCHARGE MEDICATION: Ceftriaxone 2 g daily until 01/23. Weekly CBC, CMP, and CRP. INPATIENT CONSULTANTS: 1. Infectious Disease, Dr. Cortez. 2. Cardiology, Dr. Dangelo Aldana for transesophageal echocardiogram. BRIEF HOSPITAL COURSE: The patient is a 28-year-old male with no past history, presented to the hospital with fever and sore throat of 2 weeks duration. Please refer to the history and physical for further details. The patient was admitted to the hospital with a diagnosis of sepsis of unclear etiology. His temperature in the emergency room was 105.2. CT scan of the neck showed mild prominence of the palatine tonsils without any evidence of peritonsillar abscess. He has a history of heart murmur since age of 5. An echocardiogram was performed, that showed possible vegetation on the tricuspid valve. He underwent a transesophageal echocardiogram on 12/14/[address] 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 He was also found to have a small ventricular septal defect approximately 0.5 cm. Mitral and aortic valves were normal. Ejection fraction was normal. He was started on Ancef during this hospital stay. The patient will follow up with the hospital for outpatient antibiotics. For convenience, the Ancef was changed to ceftriaxone. He will continue antibiotics until 01/23. He appears stable for discharge. FINAL DIAGNOSES: 1. Sepsis with acute organ dysfunction secondary to infective endocarditis. 2. Methicillin-sensitive Staphylococcus aureus bacteremia, sensitive to ceftriaxone. 3. A 0.5-cm ventricular septal defect. 4. Chronic anemia. 5. Sinus tachycardia secondary to sepsis. 6. Mild protein-energy malnutrition. DIAGNOSTIC TESTS: CSF studies in the emergency room was negative. Urinalysis was negative. LFTs were normal. CRP was 9.63. WBC on admission 13.5, repeat was 10.5. Job ID: [id number]
== END 2018-12-19 15:59 | disposition home or self-care (01) | DRG 871 ==
LOC: ERS 14:17 → 2NO 16:30 → T4-A 12-13 15:29
PROVIDERS: ADMIT Internal Medicine; ATTEND Internal Medicine
PROC: 02HV33Z Insertion of Infusion Device into Superior Vena Cava, Percutaneous Approach (ICD-10-PCS; principal; 2018-12-13)
PROC: B518YZA Fluoroscopy of Superior Vena Cava using Other Contrast, Guidance (ICD-10-PCS; 2018-12-13)
PROC: B548ZZA Ultrasonography of Superior Vena Cava, Guidance (ICD-10-PCS; 2018-12-13)
DX: A41.02 Sepsis due to Methicillin resistant Staphylococcus aureus (principal); I33.0 Acute and subacute infective endocarditis; E44.1 Mild protein-calorie malnutrition; Z68.1 Body mass index [BMI] 19.9 or less, adult; R65.20 Severe sepsis without septic shock; D64.9 Anemia, unspecified; Q21.9 Congenital malformation of cardiac septum, unspecified; Z16.29 Resistance to other single specified antibiotic
CPT/HCPCS: 36415; 36569; 62270; 70492; 71045; 80053; 81001; 82945; 83605; 83735; 84157; 84484; 85007; 85025; 85027; 86140; 87040; 87070; 87077; 87081; 87149; 87186; 87205; 87430; 87633; 87804; 89051; 93005; 93306; 93312; 94760; 96365; 96367; C1751; J0690; J0696; J1644; J2185; J2543; J2704; J3370; J3490; J7050; Q9966